=== PATIENT | female | born 1970 | race Two or more races ===

== ENCOUNTER 2018-07-07 02:25 | Emergency (ER) | payer OTHER ==
[~2018-07-07] VITALS: Ht 165.1 cm; Wt 57.6 kg
[2018-07-07] MEDS ORDERED: TORADOL60 MG (02:41)
[2018-07-07] MEDS ORDERED: IRON1TAB4 PO (07:44)
== END 2018-07-07 08:13 | disposition home or self-care (01) ==
LOC: ER 02:25
DX: D50.9 Iron deficiency anemia, unspecified (principal); R42 Dizziness and giddiness

== ENCOUNTER 2023-03-28 05:21 | Emergency (ER) | payer OTHER ==
[~2023-03-28] VITALS: Ht 165.1 cm; Wt 49.4 kg
[~2023-03-28 05:21] MED LIST: IRON1TAB4 PO; TORADOL60 MG
== END 2023-03-28 07:24 | disposition home or self-care (01) ==
LOC: ER 05:21
DX: G43.911 Migraine, unspecified, intractable, with status migrainosus (principal); D64.9 Anemia, unspecified

== ENCOUNTER → 2023-05-31 | Emergency (ER) | payer OTHER ==
[~2023-05-31] VITALS: Ht 165.1 cm; Wt 49.0 kg
[~2023-05-31] MED LIST changes: +CVS TENSION HE1 EACH PO; +NASAL MIST126 ML
== END | disposition left against medical advice (07) ==
LOC: ER 04:49
DX: Z53.21 Procedure and treatment not carried out due to patient leaving prior to being seen by health care provider (principal)

== ENCOUNTER 2025-02-02 00:45 | Emergency (ER) | payer OTHER ==
[~2025-02-02] VITALS: Ht 152.4 cm; Wt 45.4 kg
[2025-02-02] MEDS ORDERED: FIORICET (01:07)
[2025-02-02] MEDS ORDERED: PROMETHAZINE HCL 25 MG/ML AMPUL IM ONE (02:15)
[2025-02-02] MEDS ORDERED: DEXAMETHASONE SODIUM PHOSPHATE 4 MG/ML VIAL IM ONE (02:15)
[2025-02-02] MEDS ORDERED: KETOROLAC TROMETHAMINE 60 MG VIAL IM ONE ×2 (02:15→02:23)
[2025-02-02] MEDS ORDERED: PROMETHAZINE HCL 25 MG/ML AMPUL ONE (02:23)
[2025-02-02] MEDS ORDERED: DEXAMETHASONE SODIUM PHOSPHATE 4 MG/ML VIAL ONE (02:24)
[2025-02-02] MEDS ORDERED: BUTALBIT-ACETA1 EACH PO (02:47)
== END 2025-02-02 02:57 | disposition home or self-care (01) ==
LOC: ER 00:45
DX: G43.909 Migraine, unspecified, not intractable, without status migrainosus (principal); Z91.013 Allergy to seafood